=== PATIENT | female | born 1990 | race Caucasian/White ===

== ENCOUNTER 2018-01-04 20:10 | Outpatient (CLI) | payer OTHER | END 2018-01-04 22:00 | disposition home or self-care (01) | LOC: M LDO 20:10 | DX: O26.893 Other specified pregnancy related conditions, third trimester (principal); Z3A.33 33 weeks gestation of pregnancy; N89.8 Other specified noninflammatory disorders of vagina | CPT/HCPCS: 59025 ==

== ENCOUNTER 2018-01-31 14:47 | Inpatient (IN) | payer OTHER ==
[2018-01-31 15:50] LABS: HEMATOCRIT 29.3 % (36.0-47.0); HEMOGLOBIN 10.2 g/dl (12.0-15.5); MEAN CORPUSCULAR HEMOGLOBIN 29.4 pg (27.0-33.0); MEAN CORPUSCULAR HGB CONC 34.8 g/dl (32.0-36.5); MEAN CORPUSCULAR VOLUME 84.4 fl (80.0-96.0); PLATELET COUNT, AUTOMATED 218 10^3/uL (150-450); RED BLOOD COUNT 3.47 10^6/uL (4.00-5.40); RED CELL DISTRIBUTION WIDTH 14.2 % (11.5-14.5); WHITE BLOOD COUNT 12.7 10^3/uL (4.0-10.0)
[2018-01-31 16:07] LABS: ALT/SGPT 16 U/L (12-78); AST/SGOT 20 U/L (7-37); BILIRUBIN,TOTAL 0.3 MG/DL (0.2-1.0); CREATININE FOR GFR 0.66 MG/DL (0.55-1.30); GLOMERULAR FILTRATION RATE > 60.0 (>60); LDH LACTATE DEHYDROGENASE 190 U/L (84-246); TOTAL PROTEIN,RANDOM URINE 25.4 MG/DL (0.0-12.0); URIC ACID 4.1 MG/DL (2.6-6.0)
[2018-01-31 16:07] LABS: CREATININE,RANDOM URINE 71.4 MG/DL
[2018-01-31] MEDS ORDERED: LR 1,000 ML IV (17:09)
[2018-01-31 17:32] LABS: APPEARANCE, URINE CLOUDY (CLEAR); BACTERIA, URINE AUTO 1+ (NEGATIVE); BILIRUBIN, URINE AUTO NEGATIVE (NEGATIVE); BLOOD, URINE BLOOD NEGATIVE (NEGATIVE); COLOR, URINE YELLOW (YELLOW); GLUCOSE, URINE (UA) AUTO NEGATIVE (NEGATIVE); KETONE, URINE AUTO NEGATIVE (NEGATIVE); LEUKOCYTE ESTERASE, URINE AUTO 2+ (NEGATIVE); MUCUS, URINE SMALL (NEGATIVE); NITRITE, URINE AUTO NEGATIVE (NEGATIVE); PROTEIN, URINE AUTO NEGATIVE (NEGATIVE); RBC, URINE AUTO 1 /HPF (0-3); SQUAMOUS EPITHELIAL CELL UR AU 12 /HPF (0-6); UROBILINOGEN, URINE AUTO 0.2 mg/dL (0.0-2.0); WBC, URINE AUTO 28 /HPF (0-3)
[2018-01-31 17:44] LABS: AMPHETAMINES URINE REFLEX NEGATIVE (NEGATIVE); BENZODIAZEPINES URINE REFLEX NEGATIVE (NEGATIVE); COCAINE METABOLITE URINE REFLE NEGATIVE (NEGATIVE); METHADONE URINE REFLEX NEGATIVE (NEGATIVE); OPIATES URINE REFLEX NEGATIVE (NEGATIVE); PHENCYCLIDINE URINE REFLEX NEGATIVE (NEGATIVE)
[2018-01-31 17:51] LABS: BARBITURATES URINE REFLEX PENDING CONFIRMATION (NEGATIVE); CANNABINOIDS URINE REFLEX PENDING CONFIRMATION (NEGATIVE)
[2018-01-31] MEDS: LR 1,000 ML IV (18:03)
[2018-01-31] MEDS: OXYTOCIN DRIP 30 UNITS in APPROPRIATE DILUENT 1 EA IV (18:16)
[2018-01-31] MEDS: ACETAMINOPHEN TAB 650MG DOSE (2X325MG) PO (18:53)
[2018-01-31] MEDS: ONDANSETRON 4MG/2ML VIAL (J2405) IV (19:53)
[2018-01-31] MEDS: FIORICET TAB PO (20:23)
[2018-02-01] MEDS: NALBUPHINE HCL 10 MG/ML AMP (J2300) IV (01:00)
[2018-02-01] MEDS: PROMETHAZINE INJ 25 MG/ML VIAL (J2550) IV (01:00)
[2018-02-01] MEDS: NALBUPHINE HCL 10 MG/ML AMP (J2300) IM (01:00)
[2018-02-01] MEDS: ceFAZolin SOD 1 GM in D5W MINI-BAG PLUS 50 ML IV ×3 (02:16→17:59)
[2018-02-01] MEDS: FIORICET TAB PO ×2 (07:54→20:05)
[2018-02-01 07:57] LABS: HEMATOCRIT 26.7 % (36.0-47.0); HEMOGLOBIN 9.1 g/dl (12.0-15.5); MEAN CORPUSCULAR HGB CONC 34.1 g/dl (32.0-36.5); MEAN CORPUSCULAR VOLUME 88.1 fl (80.0-96.0); PLATELET COUNT, AUTOMATED 186 10^3/uL (150-450); RED BLOOD COUNT 3.03 10^6/uL (4.00-5.40); RED CELL DISTRIBUTION WIDTH 14.4 % (11.5-14.5); WHITE BLOOD COUNT 11.6 10^3/uL (4.0-10.0)
[2018-02-01] MEDS: LR 1,000 ML IV ×2 (09:09→09:25)
[2018-02-01] MEDS: FAMOTIDINE INJ 20MG/2ML VIAL (S0028) IVP (10:20)
[2018-02-01 11:19] LABS: HBSAG L&D NEGATIVE (NEGATIVE)
[2018-02-01] MEDS ORDERED: FENTANYL 2MCG/ML ROPIVACAINE 0.2% IN 0.9% NACL 200ML IVBAG As Ordered (14:17)
[2018-02-01] MEDS ORDERED: EPIDURAL/PCA KEYS XX (16:00)
[2018-02-01] MEDS ORDERED: EPIDURAL COMMENT XX (16:00)
[2018-02-01] MEDS ORDERED: FENTANYL/ROPIVACAINE/NACL BAG 200 ML EPIDURAL (16:00)
[2018-02-01] MEDS ORDERED: NALOXONE INJ 0.4 MG/1 ML VIAL (J2310) IV (16:00)
[2018-02-01] MEDS ORDERED: ePHEDrine SULFATE 25 MG/5 ML(5MG/ML) SYRINGE IV (16:00)
[2018-02-01] MEDS ORDERED: diphenhydrAMINE INJ 50MG/ML VIAL (J1200) IV (16:00)
[2018-02-01] MEDS ORDERED: ONDANSETRON 4MG/2ML VIAL (J2405) IV (16:00)
[2018-02-01] MEDS ORDERED: REFRIGERATOR IV KEYS XX (16:00)
[2018-02-01] MEDS ORDERED: OXYTOCIN DRIP 30 UNITS in APPROPRIATE DILUENT 1 EA IV (23:11)
[2018-02-01] MEDS ORDERED: METHYLERGONOVINE MALEATE 0.2 MG/ML VIAL (J2210) IM (23:15)
[2018-02-01] MEDS ORDERED: DIBUCAINE 1% OINTMENT 30GM TOP (23:15)
[2018-02-01] MEDS ORDERED: ANUSOL HC CREAM 30GM TOP (23:15)
[2018-02-01] MEDS ORDERED: METHYLERGONOVINE MALEATE 0.2 MG TAB PO (23:15)
[2018-02-01] MEDS ORDERED: MEASLES,MUMPS,RUBELLA VACCINE INJ (MMR-II) (90707) SC (23:15)
[2018-02-01] MEDS ORDERED: RHOGAM 300 MCG (1500 IU) INJ (J2790) IM (23:15)
[2018-02-01] MEDS ORDERED: MOM 30ML SUSPENSION UDC PO (23:15)
[2018-02-01 23:26] LABS: CORD GAS HCO3 V 22.3 MEQ/L; CORD GAS O2 SAT V 67.2 %; CORD GAS PCO2 V 36.9 mmHg; CORD GAS PO2 V 25.7 mmHg; CORD GAS SBC V 22.1 MEQ/L; CORD GAS TCO2 V 23.5 MEQ/L
[2018-02-01 23:27] LABS: CORD GAS ABE A -1.8; CORD GAS HCO3 A 24.1 MEQ/L; CORD GAS O2 SAT A 45.5 %; CORD GAS PCO2 A 45.3 mmHg; CORD GAS PH A 7.344 UNITS; CORD GAS PO2 A 20.6 mmHg; CORD GAS SBC A 21.8 MEQ/L; CORD GAS TCO2 A 25.5 MEQ/L
[2018-02-02] MEDS ORDERED: OXYTOCIN INJ 10 UNITS/ML VIAL (J2590) As Ordered ×4 (00:40→02:27)
[2018-02-02] MEDS ORDERED: CHLOROPROCAINE PRES. FREE 3% INJ 20 ML VIAL (J2400) As Ordered (01:37)
[2018-02-02] MEDS ORDERED: PROPOFOL 200 MG/20 ML VIAL As Ordered ×2 (02:12→02:28)
[2018-02-02] MEDS ORDERED: MIDAZOLAM INJ 2 MG/2 ML VIAL (J2250) As Ordered (02:12)
[2018-02-02] MEDS ORDERED: fentaNYL 100 MCG/2 ML INJECTION (J3010) As Ordered (02:12)
[2018-02-02] MEDS: miSOPROStol 200 MCG TAB (S0191) As Ordered (02:29)
[2018-02-02] MEDS ORDERED: OXYTOCIN 30 UNITS IN 0.9% NaCl 500ML IV BAG (J2590) As Ordered (02:44)
[2018-02-02] MEDS: VANCOMYCIN 1000 MG/20 ML VIAL (J3370) As Ordered (02:45)
[2018-02-02] MEDS ORDERED: HYDROMORPHONE HCL 0.5 MG/ 0.5 ML SYRINGE (J1170 PER 1) As Ordered ×2 (02:55→03:12)
[2018-02-02] MEDS: HYDROMORPHONE HCL 0.5 MG/ 0.5 ML SYRINGE (J1170 PER 1) IV ×4 (02:55→03:20)
[2018-02-02] MEDS ORDERED: PERCOCET 5MG/325MG TAB As Ordered (02:55)
[2018-02-02] MEDS ORDERED: ONDANSETRON 4MG/2ML VIAL (J2405) IV (03:00)
[2018-02-02] MEDS ORDERED: fentaNYL 100 MCG/2 ML INJECTION (J3010) IV (03:00)
[2018-02-02] MEDS: PERCOCET 5MG/325MG TAB PO (03:00)
[2018-02-02] MEDS: METHYLERGONOVINE MALEATE 0.2 MG TAB PO ×4 (06:46→17:49)
[2018-02-02 08:00] LABS: HEMATOCRIT 27.2 % (36.0-47.0); HEMOGLOBIN 9.4 g/dl (12.0-15.5); MEAN CORPUSCULAR HEMOGLOBIN 30.1 pg (27.0-33.0); MEAN CORPUSCULAR HGB CONC 34.6 g/dl (32.0-36.5); MEAN CORPUSCULAR VOLUME 87.2 fl (80.0-96.0); PLATELET COUNT, AUTOMATED 218 10^3/uL (150-450); RED BLOOD COUNT 3.12 10^6/uL (4.00-5.40)
[2018-02-02] MEDS: PRENATAL VITAMINS CHEWABLE TABLET PO (09:22)
[2018-02-02] MEDS: DOCUSATE SODIUM 100 MG CAP PO (09:23)
[2018-02-02] MEDS: IBUPROFEN 800 MG TAB PO (10:47)
[2018-02-02] MEDS: ACETAMINOPHEN 500 MG TAB PO (17:50)
[2018-02-02] MEDS: LR 1,000 ML IV (19:55)
[2018-02-03] MEDS: IBUPROFEN 800 MG TAB PO (03:28)
[2018-02-03] MEDS: PRENATAL VITAMINS CHEWABLE TABLET PO (09:00)
[2018-02-05 14:12] LABS: Amobarbital Negative (Cutoff=200); Barbiturates Positive (.); Butalbital Positive (.); Cannabinoid Positive (.); GC Butalbital 752 ng/mL (Cutoff=200); GC Carboxy THC 420 ng/mL (Cutoff=10); Pentobarbital Negative (Cutoff=200); Secobarbital Negative (Cutoff=200)
== END 2018-02-03 11:05 | disposition home or self-care (01) | DRG 767 ==
LOC: M LDO 14:47 → M OBS 02-02 07:13 → M LDI 17:46 → M OBS 02-02 13:54
PROC: 10E0XZZ Delivery of Products of Conception, External Approach (ICD-10-PCS; principal; 2018-02-02 02:11)
PROC: 3E033VJ Introduction of Other Hormone into Peripheral Vein, Percutaneous Approach (ICD-10-PCS; 2018-02-02 02:11)
PROC: 10D17Z9 Manual Extraction of Products of Conception, Retained, Via Natural or Artificial Opening (ICD-10-PCS; 2018-02-02 02:11)
DX: O14.04 Mild to moderate pre-eclampsia, complicating childbirth (principal); O99.824 Streptococcus B carrier state complicating childbirth; O99.354 Diseases of the nervous system complicating childbirth; Z37.0 Single live birth; Z3A.37 37 weeks gestation of pregnancy; G43.909 Migraine, unspecified, not intractable, without status migrainosus; M79.7 Fibromyalgia; Z88.0 Allergy status to penicillin; Z91.018 Allergy to other foods; Z91.030 Bee allergy status; Z79.899 Other long term (current) drug therapy; O77.0 Labor and delivery complicated by meconium in amniotic fluid; O73.1 Retained portions of placenta and membranes, without hemorrhage; O26.893 Other specified pregnancy related conditions, third trimester

== ENCOUNTER → 2018-04-27 | Outpatient (REF) | payer OTHER | LOC: M SFHCLERA 19:33 | DX: R50.9 Fever, unspecified (principal) ==

== ENCOUNTER → 2019-10-16 | Outpatient (CLI) | payer OTHER ==
[~2019-10-16] MED LIST: ACET500T15 PO; COLA100C5 PO; IBUP-1114 PO; PREN200C PO; RANI15TA PO; TUMS500C PO; ZANT300T9 PO
--- NOTE | 2019-10-16 10:31 | PFTRPT ---
Height: 64.00 Inches Weight: 190.00 Lbs BSA: 1.91 Diagnosis: Dyspnea, unspecified DATE OF PROCEDURE: 10/16/2019 ORDERED BY: Digna Guaman Spirometry: Pre and post bronchodilator study of excellent technical quality. Some difficulty with required maneuvers is identified. Forced vital capacity normal. FEV1 in proportion. Obstructive index is, therefore, normal. Flow Volume Loop: Expiratory limb of the flow volume loop is reasonably normal. No significant bronchodilator response identified. Lung Volumes: Total lung capacity normal. Residual volume in proportion. Diffusing Capacity: Diffusing capacity, although borderline, is appropriate for alveolar volume. Hemoglobin: Hemoglobin acceptable at 12.2. Airway Mechanics: Airway resistance and conductance are normal. IMPRESSION: Essentially normal study. MTDD
== END ==
LOC: M CARPUL 09:46
PROVIDERS: ATTEND Nurse Practitioner Primary Care
DX: R06.00 Dyspnea, unspecified (principal)

== ENCOUNTER → 2021-08-03 | Outpatient (REF) | payer OTHER | LOC: M LAB REF 13:09 | PROVIDERS: ATTEND Internal Medicine Cardiovascular Disease | DX: R23.2 Flushing (principal) ==

== ENCOUNTER → 2022-06-07 | Outpatient (CLI) | payer OTHER | LOC: M WHC 10:16 | PROVIDERS: ATTEND Advanced Practice Midwife | DX: N64.4 Mastodynia (principal); Z80.3 Family history of malignant neoplasm of breast | CPT/HCPCS: 77066; G0279 ==